=== PATIENT | male | born 1975 | race Caucasian/White ===

== ENCOUNTER → 2023-12-14 11:49 | Outpatient (CLI) | payer OTHER, SELFPAY ==
[2023-12-14 13:37] LABS: Add Manual Diff / Slide Review NO; Basophils Absolute Auto 100 /uL (0-100); Basophils Percent Auto 0.8 % (0-2); Eosinophils Absolute Auto 200 /uL (0-450); Eosinophils Percent Auto 2.8 % (2-4); Hematocrit 49.3 % (41-53); Hemoglobin 17.5 g/dL (13.5-17.5); Lymphocytes Absolute Auto 1400 /uL (1100-4500); Mean Corpuscular HGB Conc 35.6 % (30-36); Mean Corpuscular Volume 95.7 fL (80-100); Monocytes Absolute Auto 700 /uL (0-900); Monocytes Percent Auto 8.7 % (3-14); Neutrophils Absolute Auto 5400 /uL (1500-7000); Neutrophils Percent Auto 69.7 % (50-75); Platelet Count 188 X10^3/uL (150-400); Red Blood Cell Count 5.15 X10^6/uL (4.5-5.9); Red Cell Distribution Width 12.9 % (11.6-14.8); White Blood Cell Count 7.7 X10^3/uL (4.5-11.0)
[2023-12-14 13:39] LABS: Alanine Aminotransferase 92 IU/L (<50); Albumin 4.5 g/dL (3.5-5.0); Albumin Globulin Ratio 1.4 (1.0-2.8); Alkaline Phosphatase 81 U/L (38-126); Aspartate Aminotransferase 52 IU/L (17-59); BUN Creatinine Ratio 19.2 (6-22); Bilirubin Total 1.4 mg/dL (0.2-1.3); Blood Urea Nitrogen 20 mg/dL (9-20); Calcium 9.8 mg/dL (8.4-10.2); Carbon Dioxide 27 mmol/L (22-32); Chloride 104 mmol/L (98-107); Cholesterol 280 mg/dL (140-199); Estimated Glomerular Filt Rate > 60 mL/min (>60); Globulin 3.3 g/dL (1.7-4.1); Glucose 84 mg/dL (70-100); HDL Cholesterol 52 mg/dL (40-60); HEMOLYSIS < 15 (0-50); LDL Cholesterol Calculated 202 mg/dL (<100); Potassium 4.6 mmol/L (3.4-5.1); Sodium 139 mmol/L (137-145); Total Protein 7.8 g/dL (6.3-8.2); Triglycerides 131 mg/dL (35-150)
[2023-12-14 14:10] LABS: Prostate Specific Antigen 1.33 ng/mL (0.10-4.00)
== END ==
PROVIDERS: PCP Family Medicine; Referring Provider Family Medicine; Visit Provider Family Medicine
DX: Z00.00 Encounter for general adult medical examination without abnormal findings (principal); Z12.5 Encounter for screening for malignant neoplasm of prostate
CPT/HCPCS: 36415; 80053; 80061; 84153; 85025

== ENCOUNTER → 2024-01-05 08:35 | Outpatient (CLI) | payer OTHER, SELFPAY ==
--- NOTE | 2024-01-05 08:36 | DI.RAD.S_ITS ---
PROCEDURE: FL UPPER GI SERIES INDICATIONS: Gastro-esophageal reflux disease without esophagitis COMPARISON: None. FINDINGS: KUB: Preprocedural sql report analyst film demonstrates a normal bowel gas pattern. No suspicious abdominal calcifications. Visualized solid organ contours appear normal. Bony structures appear unremarkable. Esophagus: Esophageal mucosa is normal on air-contrast views. On single-contrast views, there is normal esophageal peristalsis. No strictures, extrinsic mass effects, or diverticula. No hiatal hernia . [id number] gastroesophageal reflux is seen with contrast reflux to mid esophageal lumen. There is normal transit of a calibrated barium tablet through the esophagus. Stomach: The stomach is normally distensible, with normal rugal fold thickness. No mucosal masses or ulcers. Pylorus and duodenal bulb appear normal in morphology. Duodenal folds are normal in thickness as well. IMPRESSION: [id number] gastroesophageal reflux with contrast reflux to mid esophageal lumen. No ulceration or intraluminal filling defect is seen in esophagus or stomach. Dictated by: David De La Cruz M.D. on 01/05/2024 at 18:00 Approved by: David De La Cruz M.D. on 01/05/2024 at 18:00
== END ==
LOC: RAD 08:36
PROVIDERS: PCP Family Medicine; Referring Provider Family Medicine; Visit Provider Family Medicine
DX: K21.9 Gastro-esophageal reflux disease without esophagitis (principal)
CPT/HCPCS: 74240

== ENCOUNTER 2024-02-29 11:27 | Emergency (ER) | payer OTHER, SELFPAY ==
[2024-02-29 11:29] VITALS: BP 127/94; PULSE 66; RESP 24; TEMP 36.6; O2SAT 98; BMI 33.9
--- NOTE | 2024-02-29 11:34 | DI.RAD.S_ITS ---
PROCEDURE: XR SHOULDER RT MIN 2V INDICATIONS: fall/shoulder pain TECHNIQUE: 2 views of the shoulder were acquired. COMPARISON: None. FINDINGS: Bones: No fractures or dislocations. No suspicious bony lesions. Visualized ribs appear intact. Soft tissues: No suspicious soft tissue calcifications. IMPRESSION: No acute bony abnormality. Dictated by: Zhen Valadez M.D. on 02/29/2024 at 13:02 Approved by: Zhen Valadez M.D. on 02/29/2024 at 13:03
[2024-02-29 11:35] VITALS: PULSE 71; O2SAT 97
--- NOTE | 2024-02-29 11:35 | DI.RAD.S_ITS ---
PROCEDURE: XR RIBS RT MIN 3V W CXR 1V INDICATIONS: fall/pain TECHNIQUE: 2 views of the ribs were acquired, along with a single view chest. COMPARISON: None. FINDINGS: Surgical changes and devices: None. Bones and chest wall: No fractures or dislocations. No suspicious bony lesions. Overlying soft tissues appear unremarkable. Lungs and pleura: No pleural effusions or pneumothorax. Lungs appear clear. Mediastinum: Mediastinal contours appear normal. Heart size is normal. IMPRESSION: No displaced rib fracture or pneumothorax. Dictated by: Zhen Valadez M.D. on 02/29/2024 at 13:03 Approved by: Zhen Valadez M.D. on 02/29/2024 at 13:06
[2024-02-29 12:00] VITALS: PULSE 68; O2SAT 97
[2024-02-29 12:40] VITALS: BP 139/97; PULSE 62; RESP 12; O2SAT 99
--- NOTE | 2024-02-29 12:46 | DI.CT.S_ITS ---
PROCEDURE: CT TRAUMA CHEST ABDOMEN PELVIS INDICATIONS: fall TECHNIQUE: After the administration of intravenous contrast, 5 mm thick sections acquired from the lung apices to the symphysis. 2.5 mm thick coronal and sagittal reformats were acquired. Additional 7 mm thick coronal maximum intensity projection (MIP) reformats acquired through the lungs. Optional 10-minute delayed imaging may be performed from the kidneys to the bladder. For radiation dose reduction, the following was used: automated exposure control, adjustment of mA and/or kV according to patient size. COMPARISON: Outside Film, CT, CT ABDOMEN PELVIS WITHOUT CONTRAST, 07/03/2018, 9:19. FINDINGS: Image quality: Diagnostic. CHEST: Lower Neck: No enlarged lymph nodes. Thyroid: No thyroid nodules which require sonographic evaluation. Axillae: No enlarged lymph nodes. Chest Wall: No subcutaneous gas. Lungs and Pleura: No pulmonary contusions or lacerations. No acute airspace opacities. No pneumothorax or hemothorax. Mediastinum: No mediastinal hematomas. Heart size is normal. No pericardial effusion. Thoracic aorta and pulmonary arteries demonstrate normal size and enhancement. No mediastinal or hilar adenopathy. Esophagus is normal in caliber. No hiatal hernia. ABDOMEN: Liver: No lacerations. Significant steatosis. Gallbladder: No radiopaque gallstones or wall thickening. Biliary ducts: No biliary dilation. Pancreas: Homogenous enhancement. Spleen: Homogenous enhancement without laceration or hematoma. Adrenal Glands: Symmetric enhancement. Kidneys and Ureters: Symmetric enhancement. No hydronephrosis. No solid mass. No complex renal cystic lesion which requires follow up. Stomach and Bowel: Normal colonic caliber, without significant wall thickening. Appendix is normal. Peritoneum: No abnormal intraperitoneal fluid. No free air. Ventral Wall: No hernia. Abdominal Nodes: No retroperitoneal or mesenteric adenopathy by size criteria. Vessels: Aorta and inferior vena cava are normal in size. PELVIS: Pelvic Organs: Unremarkable. Bladder: Normal thickness. Pelvic Nodes: No enlarged lymph nodes. Miscellaneous: No inguinal hernias are seen. Bones: Superior endplate deformity at T10 with approximately 42% compression. No displaced rib fractures. IMPRESSION: Superior endplate deformity with approximately 42% compression at T10 suspicious for acute/subacute fracture. Recommend correlation point tenderness. It is new since 2019. Significant hepatic steatosis. Dictated by: Susan Valera M.D. on 02/29/2024 at 15:10 Approved by: Susan Valera M.D. on 02/29/2024 at 15:17
--- NOTE | 2024-02-29 12:50 | ED.FALL ---
HPI - Fall <Erin Umaña PA-C - Last Filed: 02/29/24 17:12> General Chief Complaint: Fall Stated Complaint: fell through the deck, shoulder injury Time Seen by Provider: 02/29/24 12:14 Source: patient Mode of arrival: Wheelchair History of Present Illness HPI Narrative: 48-year-old male with history of hyperlipidemia GERD who is not on blood thinners presents with concern for approximately 6 ft fall through a deck today. Patient states he was doing work on a deck and unfortunately stepped on a joist that was not well secured which fell through, he fell between 2 adjacent joists that were secured, and as he was falling his right arm got caught behind him he said it felt like a intense cramp initially as his arm was caught but ultimately freed up as he continued to fall he states he also hit his right side of his ribs and slightly in the front of his ribs and abdomen as he fell and ?banged into things on the way down?. He landed on dirt and states he did not hit his head or lose consciousness. He states that he has been having a lot of pain in his ribs, initially he had a lot of pain in his shoulder and he felt his arm was stuck behind him after falling but he was gradually able to pull it forward and get it back into a normal position. His shoulder pain is in the top and back as well as front of his shoulder in my rotator cuff. At this point his shoulder is not painful as long as he is keeping it totally still but it is painful if he tries to move it/his arm. He states most of his current discomfort is in his rib area on the right side and slightly in the front. He does state he has been breathing more shallowly because of the pain in his ribs and side. He feels that these symptoms are gradually improving some but still painful to take a deep breath. He has also been having crampy abdominal pain ever since the fall. He has noticed a little bit of slight discomfort in his upper back in the middle but it is not particularly bothersome. He denies hitting his head, nausea, vomiting, blood in his urine, neck pain, headache, vision change or other symptoms. He endorses a history of a possible umbilical hernia which has been gradually worsening and for which he has not had previous evaluation. This does not seemed different today since his fall. Related Data Previous Rx's Medication Instructions Recorded atorvastatin 20 mg tablet 20 mg PO DAILY #60 tabs 01/05/24 baclofen 10 mg tablet 10 mg PO TID muscle 02/29/24 tightness/spasms 10 days #30 tabs oxycodone-acetaminophen 10 mg-325 1 tab PO Q6H PRN pain 3 days #12 02/29/24 mg tablet (Percocet) tabs Allergies Allergy/AdvReac Type Severity Reaction Status Date / Time No Known Drug Allergies Allergy Unverified 12/14/23 11:11 Review of Systems <Erin Umaña PA-C - Last Filed: 02/29/24 17:12> Review of Systems Narrative: See HPI Patient History <Erin Umaña PA-C - Last Filed: 02/29/24 17:12> Medical History Hyperlipidemia Past history of chewing tobacco use Preventative health care GERD (gastroesophageal reflux disease) Social History Smoking Status: Never smoker Smoking Status: Never smoker alcohol intake frequency: holidays/special occasions only Substance Use Type: does not use Exam <Erin Umaña PA-C - Last Filed: 02/29/24 17:12> Narrative Exam Narrative: GENERAL: [48] year old patient appears stated age. Overweight patient, in mild distress. HEAD: Atraumatic. Normocephalic. EYES: Pupils equal round and reactive. Extraocular motions intact. No scleral icterus. No injection or drainage. ENT: Nose without bleeding, purulent drainage. Throat without erythema, tonsillar hypertrophy or exudate. Airway patent. NECK: Trachea midline. Non tender CARDIOVASCULAR: Regular rate and rhythm without murmurs, gallops, or rubs. RESPIRATORY: Lung sounds are slightly diminished in the base on the right. Breath sounds otherwise equal bilaterally. No wheezes, rales, or rhonchi. GASTROINTESTINAL: Abdomen soft, there is right upper quadrant tenderness, there are superficial abrasions/early bruising signs on the right upper abdomen at the costal margin. Non-tender, nondistended. EXTREMITIES: Right shoulder has significantly reduced range of motion 2nd to pain, tenderness of posterior shoulder and trapezius, passive range of motion is also very painful for the patient. Unable to perform scarf sign test or lift the arm/abduct above 15? without significant pain. No other edema or joint tenderness noted on exam. BACK/thorax: There is tenderness with palpation of the right anterior and axillary ribs at level T 8 through 10. No definite crepitus noted. C-spine is nontender without step-off or deformity, T-spine has some mild tenderness at T 6 through 12. No deformity noted. Nontender without deformity or crepitance. No flank tenderness. NEURO: AOx3. SKIN: No rash or erythema of visible areas Initial Vital Signs Initial Vital Signs: Vital Signs Temperature 97.8 F 02/29/24 11:29 Pulse Rate 66 02/29/24 11:29 Respiratory Rate 24 02/29/24 11:29 Blood Pressure 127/94 H 02/29/24 11:29 Pulse Oximetry 98 02/29/24 11:29 Oxygen Delivery Method Room Air 02/29/24 11:29 <Oliverio Ontiveros MD - Last Filed: 02/29/24 20:33> Initial Vital Signs Initial Vital Signs: Vital Signs Temperature 97.8 F 02/29/24 11:29 Pulse Rate 66 02/29/24 11:29 Respiratory Rate 24 02/29/24 11:29 Blood Pressure 127/94 H 02/29/24 11:29 Pulse Oximetry 98 02/29/24 11:29 Oxygen Delivery Method Room Air 02/29/24 11:29 Course <Erin Umaña PA-C - Last Filed: 02/29/24 17:12> Orders Ordered: ED Orders 02/29/24 11:34 XR shoulder RT min 2V Stat 02/29/24 11:35 XR ribs RT min 3V w CXR1V Stat 02/29/24 12:46 CT Trauma Chest Abdomen Pelvis Stat RT Consult Eval and Treat NOW 02/29/24 12:47 EKG-12 Lead Stat 02/29/24 13:02 Complete Blood Count AUTO DIFF Stat Comprehensive Metabolic Panel Stat Ictotest Urine Stat Lipase Stat PTT Partial Thromboplastin Sharif Stat Prothrombin Time INR Stat Urinalysis and Microscopic Stat Discontinued Medications Hydromorphone HCl (Hydromorphone 1 Mg Inj) 1 mg IV NOW ONE Stop: 02/29/24 12:47 Last Admin: 02/29/24 12:54 Dose: 1 mg Documented By: HARISH Hydromorphone HCl (Hydromorphone 1 Mg Inj) 0.5 mg IV NOW ONE Stop: 02/29/24 14:32 Last Admin: 02/29/24 14:36 Dose: 0.5 mg Documented By: HARISH Sodium Chloride (Normal Saline 0.9%) 1,000 mls @ 500 mls/hr IV BOLUS ONE Stop: 02/29/24 14:49 Last Infusion: 02/29/24 15:33 Dose: Infused Documented By: Admin: 02/29/24 12:54 Dose: 500 mls/hr Documented By: HARISH Ondansetron HCl (Ondansetron 4 Mg/2 Ml Inj) 4 mg IV NOW ONE Stop: 02/29/24 12:47 Last Admin: 02/29/24 12:53 Dose: 4 mg Documented By: HARISH Reevaluation(s) Reevaluation #1: On re-evaluation after obtaining CT results notable for 42% compression fracture at T10, patient does have some spine tenderness midline at approximately T10-T12 which was not notable on initial exam. Reports that he sustained compression injury and has seen his PCP for it 3 months ago but has been having persistent pain at or around T10, did not have previous imaging for this. Vital Signs Vital signs: Vital Signs - 8 hr 02/29/24 12:40 02/29/24 14:37 02/29/24 16:04 Pulse Rate 62 59 L 64 Respiratory Rate 12 14 14 Blood Pressure 139/97 H 125/83 121/75 Pulse Oximetry 99 99 96 Oxygen Delivery Method Room Air Room Air <Oliverio Ontiveros MD - Last Filed: 02/29/24 20:33> Orders Ordered: ED Orders 02/29/24 11:34 XR shoulder RT min 2V Stat 02/29/24 11:35 XR ribs RT min 3V w CXR1V Stat 02/29/24 12:46 CT Trauma Chest Abdomen Pelvis Stat RT Consult Eval and Treat NOW 02/29/24 12:47 EKG-12 Lead Stat 02/29/24 13:02 Complete Blood Count AUTO DIFF Stat Comprehensive Metabolic Panel Stat Ictotest Urine Stat Lipase Stat PTT Partial Thromboplastin Sharif Stat Prothrombin Time INR Stat Urinalysis and Microscopic Stat Discontinued Medications Hydromorphone HCl (Hydromorphone 1 Mg Inj) 1 mg IV NOW ONE Stop: 02/29/24 12:47 Last Admin: 02/29/24 12:54 Dose: 1 mg Documented By: HARISH Hydromorphone HCl (Hydromorphone 1 Mg Inj) 0.5 mg IV NOW ONE Stop: 02/29/24 14:32 Last Admin: 02/29/24 14:36 Dose: 0.5 mg Documented By: HARISH Sodium Chloride (Normal Saline 0.9%) 1,000 mls @ 500 mls/hr IV BOLUS ONE Stop: 02/29/24 14:49 Last Infusion: 02/29/24 15:33 Dose: Infused Documented By: Admin: 02/29/24 12:54 Dose: 500 mls/hr Documented By: HARISH Ondansetron HCl (Ondansetron 4 Mg/2 Ml Inj) 4 mg IV NOW ONE Stop: 02/29/24 12:47 Last Admin: 02/29/24 12:53 Dose: 4 mg Documented By: HARISH Vital Signs Vital signs: Vital Signs - 8 hr 02/29/24 12:40 02/29/24 14:37 02/29/24 16:04 Pulse Rate 62 59 L 64 Respiratory Rate 12 14 14 Blood Pressure 139/97 H 125/83 121/75 Pulse Oximetry 99 99 96 Oxygen Delivery Method Room Air Room Air MDM - Fall <Erin Umaña PA-C - Last Filed: 02/29/24 17:12> Differential Diagnosis Differential diagnosis: Likely dislocation of shoulder region and other (rib fractures, pulmonary contusion, intra-abdominal trauma, thoracic compression fracture) Medical Records Attestation: I reviewed the patient's medical records. Lab Data Attestation: I reviewed the patient's lab results. 02/29/24 13:02 02/29/24 13:02 Labs: Lab Results 02/29/24 Range/Units 13:02 WBC 9.9 (4.5-11.0) X10^3/uL RBC 5.09 (4.5-5.9) X10^6/uL Hgb 17.0 (13.5-17.5) g/dL Hct 48.0 (41-53) % MCV 94.4 (80-100) fL MCH 33.3 (26-34) PG MCHC 35.3 (30-36) % RDW 13.3 (11.6-14.8) % Plt Count 188 (150-400) X10^3/uL Neut % (Auto) 79.1 H (50-75) % Lymph % (Auto) 11.3 L (25-40) % [place] % (Auto) 7.5 (3-14) % Eos % (Auto) 1.4 L (2-4) % Baso % (Auto) 0.7 (0-2) % Neut # (Auto) 7800 H (2484-6679) /uL Lymph # (Auto) 1100 (2043-0280) /uL [place] # (Auto) 700 (0-900) /uL Eos # (Auto) 100 (0-450) /uL Baso # (Auto) 100 (0-100) /uL PT 11.8 (9.4-12.5) SECONDS INR 1.0 (0.9-1.3) APTT 31 (25.1-36.5) SECONDS Sodium 136 L (137-145) mmol/L Potassium 5.0 (3.4-5.1) mmol/L Chloride 102 (98-107) mmol/L Carbon Dioxide 26 (22-32) mmol/L BUN 20 (9-20) mg/dL Creatinine 0.95 (0.66-1.25) mg/dL Estimated GFR > 60 (>60) mL/min BUN/Creatinine Ratio 21.1 (6-22) Glucose 94 (70-100) mg/dL Calcium 9.8 (8.4-10.2) mg/dL Total Bilirubin 1.4 H (0.2-1.3) mg/dL AST 93 H (17-59) IU/L ALT 143 H (<50) IU/L Alkaline Phosphatase 72 (38-126) U/L Total Protein 8.1 (6.3-8.2) g/dL Albumin 4.8 (3.5-5.0) g/dL Globulin 3.3 (1.7-4.1) g/dL Albumin/Globulin Ratio 1.5 (1.0-2.8) Lipase 102 (23-300) U/L Urine Color [place] Urine Appearance Clear Urine pH 7.0 (4.5-8.0) Ur Specific [place] 1.020 (1.000-1.035) Urine Protein 1+ H (Negative) Urine Glucose (UA) Negative (Negative) g/dL Urine Ketones 1+ H (NEGATIVE) Urine Occult Blood Negative (Negative) Urine Nitrate Negative (Negative) Urine Bilirubin 1+ H (NEGATIVE) Ur Bilirubin Confirm Negative (Negative) Urine Urobilinogen 2.0 H (0.2) E.U./dL Ur Leukocyte Esterase Negative (NEGATIVE) Urine RBC 0-1/hpf (0-5/HPF) Urine WBC 0-1/hpf (0-5/HPF) Ur Squamous Epith Cells 5-10 /hpf H (0-5/HPF) Urine Bacteria None seen (None) Urine Mucus 2+ H (Negative) Ur Culture Indicated? Cult not indicated Vol Urine Centrifuged 10ml (spun) Imaging Data Ribs XR: My Impression: Agree with Radiology interpretation Radiologist's Impression: [address] [address] XRay Report Signed Patient: Thanh Conklin MR#: [id number] : 1975 Acct:[id number] Age/Sex: 48 / M Date of Service: 02/29/24 Loc: ED Accession Number: [id number] Procedure: XR ribs RT min 3V w CXR1V Ordering Provider: Oliverio Ontiveros MD PROCEDURE: XR RIBS RT MIN 3V W CXR 1V INDICATIONS: fall/pain TECHNIQUE: 2 views of the ribs were acquired, along with a single view chest. COMPARISON: None. FINDINGS: Surgical changes and devices: None. Bones and chest wall: No fractures or dislocations. No suspicious bony lesions. Overlying soft tissues appear unremarkable. Lungs and pleura: No pleural effusions or pneumothorax. Lungs appear clear. Mediastinum: Mediastinal contours appear normal. Heart size is normal. IMPRESSION: No displaced rib fracture or pneumothorax. Dictated by: Zhen Valadez M.D. on 02/29/2024 at 13:03 Approved by: Zhen Valadez M.D. on 02/29/2024 at 13:06 Extremity x-ray #1: My Impression: Agree with Radiology interpretation Radiologist's Impression: [address] [address] XRay Report Signed Patient: Thanh Conklin MR#: [id number] : 1975 Acct:[id number] Age/Sex: 48 / M Date of Service: 02/29/24 Loc: ED Accession Number: [id number] Procedure: XR shoulder RT min 2V Ordering Provider: Oliverio Ontiveros MD PROCEDURE: XR SHOULDER RT MIN 2V INDICATIONS: fall/shoulder pain TECHNIQUE: 2 views of the shoulder were acquired. COMPARISON: None. FINDINGS: Bones: No fractures or dislocations. No suspicious bony lesions. Visualized ribs appear intact. Soft tissues: No suspicious soft tissue calcifications. IMPRESSION: No acute bony abnormality. Dictated by: Zhen Valadez M.D. on 02/29/2024 at 13:02 Approved by: Zhen Valadez M.D. on 02/29/2024 at 13:03 CT scan - abdomen/pelvis: My Impression: Agree with Radiology interpretation Radiologist's Impression: [place] [address] CT Scan Report Signed Patient: Thanh Conklin MR#: [id number] : 1975 Acct:[id number] Age/Sex: 48 / M Date of Service: 02/29/24 Loc: ED Accession Number: [id number] Procedure: CT Trauma Chest Abdomen Pelvis Ordering Provider: Erin Umaña PA-C PROCEDURE: CT TRAUMA CHEST ABDOMEN PELVIS INDICATIONS: fall TECHNIQUE: After the administration of intravenous contrast, 5 mm thick sections acquired from the lung apices to the symphysis. 2.5 mm thick coronal and sagittal reformats were acquired. Additional 7 mm thick coronal maximum intensity projection (MIP) reformats acquired through the lungs. Optional 10-minute delayed imaging may be performed from the kidneys to the bladder. For radiation dose reduction, the following was used: automated exposure control, adjustment of mA and/or kV according to patient size. COMPARISON: Outside Film, CT, CT ABDOMEN PELVIS WITHOUT CONTRAST, 07/03/2018, 9:19. FINDINGS: Image quality: Diagnostic. CHEST: Lower Neck: No enlarged lymph nodes. Thyroid: No thyroid nodules which require sonographic evaluation. Axillae: No enlarged lymph nodes. Chest Wall: No subcutaneous gas. Lungs and Pleura: No pulmonary contusions or lacerations. No acute airspace opacities. No pneumothorax or hemothorax. Mediastinum: No mediastinal hematomas. Heart size is normal. No pericardial effusion. Thoracic aorta and pulmonary arteries demonstrate normal size and enhancement. No mediastinal or hilar adenopathy. Esophagus is normal in caliber. No hiatal hernia. ABDOMEN: Liver: No lacerations. Significant steatosis. Gallbladder: No radiopaque gallstones or wall thickening. Biliary ducts: No biliary dilation. Pancreas: Homogenous enhancement. Spleen: Homogenous enhancement without laceration or hematoma. Adrenal Glands: Symmetric enhancement. Kidneys and Ureters: Symmetric enhancement. No hydronephrosis. No solid mass. No complex renal cystic lesion which requires follow up. Stomach and Bowel: Normal colonic caliber, without significant wall thickening. Appendix is normal. Peritoneum: No abnormal intraperitoneal fluid. No free air. Ventral Wall: No hernia. Abdominal Nodes: No retroperitoneal or mesenteric adenopathy by size criteria. Vessels: Aorta and inferior vena cava are normal in size. PELVIS: Pelvic Organs: Unremarkable. Bladder: Normal thickness. Pelvic Nodes: No enlarged lymph nodes. Miscellaneous: No inguinal hernias are seen. Bones: Superior endplate deformity at T10 with approximately 42% compression. No displaced rib fractures. IMPRESSION: Superior endplate deformity with approximately 42% compression at T10 suspicious for acute/subacute fracture. Recommend correlation point tenderness. It is new since 2019. Significant hepatic steatosis. Dictated by: Susan Valera M.D. on 02/29/2024 at 15:10 Approved by: Susan Valera M.D. on 02/29/2024 at 15:17 MDM Narrative Medical decision making narrative: This is a 48-year-old male with a history of hyperlipidemia, GERD presenting with pain with inspiration, right rib pain and abdominal pain as well as right shoulder pain after a fall from 6-8 feet of height from a deck to dirt today. X-rays of shoulder and right ribs were ordered initially from triage which did returned negative however patient had significant tenderness on exam and pain that required Dilaudid for improvement, also some tenderness of his spine and abdomen right upper quadrant at the site of multiple abrasions from the fall today, and CT was ordered for further evaluation. No evidence of rib fractures or pneumothorax, This revealed chronic hepatic steatosis as well as a T10 compression injury with 42% loss of height, after further discussion with the patient suspect that this may be from 3 months prior when patient injured himself with a compression type injury but did not have imaging. Radiology felt that this injury may be subacute. Certainly this could have been exacerbated by today's fall/injury. Although I think less likely was due to the injury fall today. Patient's exam is also consistent with a rotator cuff injury significant reduced range of motion of the right shoulder and pain. Based on his description of the injury pattern when he fell through the deck am suspicious that he did possibly tear/sprain some sits muscles. He had mild elevation of his liver enzymes and elevated bilirubin to 1.4 but really elevation is consistent from his last labs in November. Discussed with him and suspect this is likely due to his hepatic steatosis. He is advised to follow up closely with his PCP for this. Prescription for 3 day course of Percocet to be used as needed for pain as well as muscle relaxer. Patient advised to follow up closely with PCP, see orthopedics for further evaluation of shoulder, discuss his likely chronic spine compression injury with his PCP and see ortho spine after this. Return precautions provided, follow-up plan discussed, all questions answered. <Oliverio Ontiveros MD - Last Filed: 02/29/24 20:33> Lab Data Labs: Lab Results 02/29/24 Range/Units 13:02 WBC 9.9 (4.5-11.0) X10^3/uL RBC 5.09 (4.5-5.9) X10^6/uL Hgb 17.0 (13.5-17.5) g/dL Hct 48.0 (41-53) % MCV 94.4 (80-100) fL MCH 33.3 (26-34) PG MCHC 35.3 (30-36) % RDW 13.3 (11.6-14.8) % Plt Count 188 (150-400) X10^3/uL Neut % (Auto) 79.1 H (50-75) % Lymph % (Auto) 11.3 L (25-40) % [place] % (Auto) 7.5 (3-14) % Eos % (Auto) 1.4 L (2-4) % Baso % (Auto) 0.7 (0-2) % Neut # (Auto) 7800 H (1759-3034) /uL Lymph # (Auto) 1100 (0767-5002) /uL [place] # (Auto) 700 (0-900) /uL Eos # (Auto) 100 (0-450) /uL Baso # (Auto) 100 (0-100) /uL PT 11.8 (9.4-12.5) SECONDS INR 1.0 (0.9-1.3) APTT 31 (25.1-36.5) SECONDS Sodium 136 L (137-145) mmol/L Potassium 5.0 (3.4-5.1) mmol/L Chloride 102 (98-107) mmol/L Carbon Dioxide 26 (22-32) mmol/L BUN 20 (9-20) mg/dL Creatinine 0.95 (0.66-1.25) mg/dL Estimated GFR > 60 (>60) mL/min BUN/Creatinine Ratio 21.1 (6-22) Glucose 94 (70-100) mg/dL Calcium 9.8 (8.4-10.2) mg/dL Total Bilirubin 1.4 H (0.2-1.3) mg/dL AST 93 H (17-59) IU/L ALT 143 H (<50) IU/L Alkaline Phosphatase 72 (38-126) U/L Total Protein 8.1 (6.3-8.2) g/dL Albumin 4.8 (3.5-5.0) g/dL Globulin 3.3 (1.7-4.1) g/dL Albumin/Globulin Ratio 1.5 (1.0-2.8) Lipase 102 (23-300) U/L Urine Color [place] Urine Appearance Clear Urine pH 7.0 (4.5-8.0) Ur Specific [place] 1.020 (1.000-1.035) Urine Protein 1+ H (Negative) Urine Glucose (UA) Negative (Negative) g/dL Urine Ketones 1+ H (NEGATIVE) Urine Occult Blood Negative (Negative) Urine Nitrate Negative (Negative) Urine Bilirubin 1+ H (NEGATIVE) Ur Bilirubin Confirm Negative (Negative) Urine Urobilinogen 2.0 H (0.2) E.U./dL Ur Leukocyte Esterase Negative (NEGATIVE) Urine RBC 0-1/hpf (0-5/HPF) Urine WBC 0-1/hpf (0-5/HPF) Ur Squamous Epith Cells 5-10 /hpf H (0-5/HPF) Urine Bacteria None seen (None) Urine Mucus 2+ H (Negative) Ur Culture Indicated? Cult not indicated Vol Urine Centrifuged 10ml (spun) Discharge Plan Departure Patient Disposition: Home Clinical Impression: Hepatic steatosis, Fall from height of greater than 3 feet Rotator cuff (capsule) sprain Qualifiers: Encounter type: initial encounter Laterality: right Qualified Code(s): S43.421A - Sprain of right rotator cuff capsule, initial encounter Intercostal muscle strain Qualifiers: Encounter type: initial encounter Qualified Code(s): S29.011A - Strain of muscle and tendon of front wall of thorax, initial encounter Compression fracture of T10 vertebra Qualifiers: Encounter type: initial encounter Qualified Code(s): S22.070A - Wedge compression fracture of T9-T10 vertebra, initial encounter for closed fracture Activity Restrictions/Additional Instructions: *You have been diagnosed with [rotator cuff injury/shoulder strain, T10 vertebral compression fracture (possibly from 3 months ago), intercostal muscle strain, hepatic steatosis] *What to do: *Please continue to take your regular medications as directed. [2 ] New medication prescriptions sent to your pharmacy: [Baclofen, Percocet] [ ] New medication written as a paper prescription [ ] No new medications given *Please follow up with your primary care provider in 2-3 days, call for an appointment. Let them know you were seen in the Emergency Department and that we ask that you be seen in follow up. We will electronically transmit a record of today's note if your PCP is in our system. You had a fall today and injured her shoulder and right-side ribs. Your shoulder x-ray does not show any abnormality of the bones but based on your exam I am suspicious you have a rotator cuff injury and has likely torn some of the muscles that support your shoulder movement possibly damage the joint itself. We placed you in a sling today and I recommend close follow up with Orthopedics for this. You also sustained some rib/upper abdominal trauma when you fell, but thankfully do not have any rib fractures seen today or other abnormalities on CT scan of your chest abdomen and pelvis except that they did note you have hepatic steatosis. Your labs also are consistent with this and this could potentially be the source of your reported chronic abdominal discomfort. I recommend following up closely with your PCP regarding your hepatic steatosis and abdominal symptoms. Notably on CT they also found a compression fracture with a 42% height loss of your vertebra of the T10 (thoracic 10th vertebrae). After discussion regarding your history I am fairly suspicious that this injury actually probably occurred 3 months ago when you fell and landed very hard on your butt and compressed her spine as you have been having some chronic pain at this site since then. Can not rule out that this happened today during your fall except that Radiology felt it may be subacute; certainly even if not a new injury it was likely exacerbated during your fall today. I would encourage you to talk to an orthopedic biomedical equipment specialist but you can talk to your primary care provider about next steps here. I strongly encourage you to use ice for the next 24-48 hours on areas of pain including her shoulder and or back. I did prescribe some stronger pain medicine but recommend you start with Tylenol and ibuprofen and move onto the stronger medicine if needed. Keep in mind that strong medicine does have Tylenol in it and you should not take more than the maximum recommended dose of Tylenol per day all told. I also prescribed a muscle relaxer for you be cautious about operating any heavy equipment/driving (not recommended) when taking this and you should not drink alcohol at the same time is taking it. Follow up closely with your primary care provider, if you have new or worsening symptoms please seek re-evaluation. *If you do not have a primary care provider please contact the [facility] Resource line at [phone]. They will ask some questions about your medical history and help get you set up with a doctor in the community. *Return to Emergency Department if you should have any new, worsening or concerning symptoms, such as [fever greater than 101 F, shaking chills, worsening pain, persistent vomiting or other bothersome symptoms] This note was prepared using dictation and may have unintentional errors in spelling or grammar. Prescriptions: New baclofen 10 mg tablet 10 mg PO TID 10 Days Qty: 30 0RF oxycodone-acetaminophen [Percocet] 10-325 mg tablet 1 tab PO Q6H PRN (Reason: pain) 3 Days Qty: 12 0RF No Action atorvastatin 20 mg tablet 20 mg PO DAILY Qty: 60 4RF Rx Instructions: Take 10 mg.(Half a tablet) for 5 days, then take full tablet or 20 mg. daily Referrals: Jay Bolton DO [Primary Care Provider] - Aaron Nolan MD [Physician] - (rotator cuff injury s/p trauma/fall) Stand Alone Forms: Patient Portal/API ED Sign-out <Oliverio Ontiveros MD - Last Filed: 02/29/24 20:33> Sign Out Provider Sign Out Attestation: I was immediately available in the department for consultation. This documentation has been reviewed. Supervised by Oliverio Ontiveros MD
[2024-02-29] MEDS: ONDANSETRON 4 MG/2 ML INJ IV (12:53)
[2024-02-29] MEDS: HYDROMORPHONE 1 MG INJ IV (12:54)
[2024-02-29] MEDS: SODIUM CHLORIDE 0.9% 1,000 ML 500 ML IV (12:54)
[2024-02-29 13:16] LABS: Add Manual Diff / Slide Review NO; Basophils Absolute Auto 100 /uL (0-100); Basophils Percent Auto 0.7 % (0-2); Eosinophils Absolute Auto 100 /uL (0-450); Eosinophils Percent Auto 1.4 % (2-4); Lymphocytes Absolute Auto 1100 /uL (1100-4500); Lymphocytes Percent Auto 11.3 % (25-40); Mean Corpuscular HGB Conc 35.3 % (30-36); Mean Corpuscular Hemoglobin 33.3 PG (26-34); Mean Corpuscular Volume 94.4 fL (80-100); Monocytes Absolute Auto 700 /uL (0-900); Monocytes Percent Auto 7.5 % (3-14); Neutrophils Absolute Auto 7800 /uL (1500-7000); Neutrophils Percent Auto 79.1 % (50-75); Platelet Count 188 X10^3/uL (150-400); Red Blood Cell Count 5.09 X10^6/uL (4.5-5.9); Red Cell Distribution Width 13.3 % (11.6-14.8); White Blood Cell Count 9.9 X10^3/uL (4.5-11.0)
[2024-02-29 13:26] LABS: Prothrombin Time 11.8 SECONDS (9.4-12.5)
[2024-02-29 13:29] LABS: PTT Partial Thromboplastin Tim 31 SECONDS (25.1-36.5)
[2024-02-29 13:32] LABS: Lipase 102 U/L (23-300)
[2024-02-29 13:33] LABS: Alanine Aminotransferase 143 IU/L (<50); Albumin 4.8 g/dL (3.5-5.0); Albumin Globulin Ratio 1.5 (1.0-2.8); Alkaline Phosphatase 72 U/L (38-126); Aspartate Aminotransferase 93 IU/L (17-59); BUN Creatinine Ratio 21.1 (6-22); Bilirubin Total 1.4 mg/dL (0.2-1.3); Blood Urea Nitrogen 20 mg/dL (9-20); Calcium 9.8 mg/dL (8.4-10.2); Carbon Dioxide 26 mmol/L (22-32); Chloride 102 mmol/L (98-107); Estimated Glomerular Filt Rate > 60 mL/min (>60); Globulin 3.3 g/dL (1.7-4.1); Glucose 94 mg/dL (70-100); HEMOLYSIS 20 (0-50); Sodium 136 mmol/L (137-145); Total Protein 8.1 g/dL (6.3-8.2)
[2024-02-29 14:22] LABS: Appearance Urine UA CLEAR; Bilirubin Urine UA 1+ (NEGATIVE); Color Urine UA ORANGE; Glucose Urine UA NEGATIVE (Negative); Ketones Urine UA 1+ (NEGATIVE); Leukocyte Esterase Urine UA NEGATIVE (NEGATIVE); Nitrite Urine UA NEGATIVE (Negative); Occult Blood Urine UA NEGATIVE (Negative); Protein Urine UA 1+ (Negative)
[2024-02-29] MEDS: HYDROMORPHONE 1 MG INJ 0.5 MG IV (14:36)
[2024-02-29 14:37] VITALS: BP 125/83; PULSE 59; RESP 14; O2SAT 99
[2024-02-29 14:39] LABS: Bacteria Urine None Seen; RBC Urine 0-1/HPF (0-5/HPF); Squamous Epithelial Cell Urine 5-10 /HPF (0-5/HPF); Urine Volume 10mL (spun); WBC Urine 0-1/HPF (0-5/HPF)
[2024-02-29 14:40] LABS: Culture Indicated Urine Cult Not Indicated; Mucus Urine 2+ (Negative)
[2024-02-29 14:42] LABS: Ictotest Urine Negative (Negative)
[2024-02-29 16:04] VITALS: BP 121/75; PULSE 64; RESP 14; O2SAT 96
== END 2024-02-29 16:05 | disposition home or self-care (01) ==
PROVIDERS: Emergency Provider Student in an Organized Health Care Education/Training Program; PCP Family Medicine
DX: S43.421A Sprain of right rotator cuff capsule, initial encounter (principal); S29.011A Strain of muscle and tendon of front wall of thorax, initial encounter; S22.070A Wedge compression fracture of T9-T10 vertebra, initial encounter for closed fracture; R07.81 Pleurodynia; K76.0 Fatty (change of) liver, not elsewhere classified; W17.89XA Other fall from one level to another, initial encounter
CPT/HCPCS: 36415; 71101; 71275; 73030; 74177; 80053; 81001; 83690; 85025; 85610; 85730; 96361; 96374; 96375; 96376; 99284; J1170; J2405; Q9967

== ENCOUNTER → 2024-04-10 08:09 | Outpatient (CLI) | payer OTHER, SELFPAY ==
--- NOTE | 2024-04-10 | DI.MRI.S_ITS ---
PROCEDURE: MR SHOULDER RT WO CON INDICATIONS: RIGHT SHOULDER PAIN TECHNIQUE: Noncontrast oblique coronal T2 fast spin echo with fat saturation, oblique sagittal T1 spin echo and T2 fast spin echo with fat saturation, axial T1 spin echo and T2 fast spin echo with fat saturation through the shoulder. COMPARISON: [facility], CR, XR SHOULDER RT MIN 2V, 02/29/2024, 11:40. FINDINGS: Image quality: Excellent. Rotator cuff: Mild tendinosis of supraspinatus and infraspinatus, without tear. The teres minor is unremarkable. Low-grade interstitial tear of the subscapularis. Mild muscle edema of the infraspinatus, nonspecific likely representing mild muscle strain. No fatty atrophy. Bones and bursae: No significant degenerative changes acromioclavicular joint. Type 1 acromion. No os acromiale. Trace subacromial/subdeltoid bursitis. Mildly impacted fracture of the posterior humeral head, likely representing Hill-Sachs fracture, measuring 1.4 x 0.4 cm (length by depth). There is associated moderate marrow edema in the humeral head, extending to the humeral neck. No focal chondral defect of the glenohumeral articulation. Capsule and soft tissues: Circumferential labral tear and degeneration. A cluster of small paralabral cyst about the posterior labrum, measuring 1.4 cm overall. Mild tenosynovitis of the extra-articular biceps tendon. Low-grade interstitial tear of the extra-articular biceps tendon at the level of the proximal humeral diaphysis. Moderate tendinosis of the intra-articular biceps tendon. Small glenohumeral effusion. Mild subcoracoid bursitis. IMPRESSION: 1. Acute Hill-Sachs fracture, suggestive of recent anterior shoulder dislocation 2. Low-grade tear of the subscapularis. 3. Mild muscle edema of the infraspinatus, nonspecific and may represent mild muscle strain. 4. Circumferential labral tear with 1.4 cm paralabral cyst. 5. Mild tenosynovitis of the extra-articular biceps tendon with low-grade tear. Moderate tendinosis of the intra-articular biceps tendon. Dictated by: Hazel Ayala M.D. on 04/10/2024 at 14:21 Approved by: Hazel Ayala M.D. on 04/10/2024 at 14:30
== END ==
LOC: MRI 08:10
PROVIDERS: PCP Family Medicine; Referring Provider Orthopaedic Surgery; Visit Provider Orthopaedic Surgery
DX: S42.291A Other displaced fracture of upper end of right humerus, initial encounter for closed fracture (principal); S46.011A Strain of muscle(s) and tendon(s) of the rotator cuff of right shoulder, initial encounter; S43.431A Superior glenoid labrum lesion of right shoulder, initial encounter; M65.811 Other synovitis and tenosynovitis, right shoulder; M25.511 Pain in right shoulder
CPT/HCPCS: 73221

== ENCOUNTER 2024-07-30 08:11 | Day surgery (SDC) | payer OTHER, SELFPAY ==
--- NOTE | 2024-07-30 | PATH_ITS ---
[facility] Accession Number: [id number] No. of containers..02 Tissue . 01 Material submitted: . PART A: colon - TRANSVERSE POLYP PART B: colon - DESCENDING POLYP . 01 Diagnosis: A. TRANSVERSE COLON: Tubular adenoma. . B. DESCENDING COLON: Tubular adenoma. MRV 08/01/2024 1415 Local . 01 Electronically signed: . Ifeoma Soto DO, Pathologist NPI- [id number] . 01 Gross description: . A. Received in formalin with two patient identifiers and transverse colon polyp, are two diaz soft tissue fragments 0.3 to 0.4 cm in greatest dimension. Submitted in cassette A1. B. Received in formalin with two patient identifiers and descending colon polyp, are two diaz soft tissue fragments 0.6 to 0.7 cm in greatest dimension. Submitted in cassette B1. ([id number]) /JADEN 07/31/2024 0908 Local . 01 Pathologist provided ICD-10: Z12.11 . 01 CPT . 455110, [id number] Specimen Comment: A courtesy copy of this report has been sent to [facility] Pathology Performed at: [address] [facility] [id number] MD Brennon Alarcon MD Phone: [phone]
[2024-07-30 08:32] VITALS: BP 153/96; PULSE 72; RESP 16; TEMP 36.5; O2SAT 94
[2024-07-30] MEDS: SODIUM CHLORIDE 0.9% 1,000 ML 84 ML IV (08:38)
--- NOTE | 2024-07-30 09:40 | PM.HP.IH.1 ---
History of Present Illness History of Present Illness Date Patient Seen: 07/30/24 Time Patient Seen: 09:40 Chief complaint: Screening Colonoscopy Narrative: 48-year-old white male, no family history of colon cancer Crohn's disease presents for initial colon cancer screening. COUNT INCLUDES THE [facility] Medical History (Updated 07/30/24 @ 09:41 by Husam Pressley MD) Colon cancer screening (07/30/24) Hyperlipidemia Past history of chewing tobacco use Preventative health care GERD (gastroesophageal reflux disease) Social History Smoking Status: Never smoker alcohol intake: current Meds Home Medications and Allergies Home Medications Medication Instructions Recorded Confirmed Type atorvastatin 20 mg tablet 20 mg PO DAILY #60 tabs 01/05/24 07/30/24 Rx Allergies Allergy/AdvReac Type Severity Reaction Status Date / Time No Known Drug Allergies Allergy Verified 07/30/24 08:28 Review of Systems Review of Systems ROS: Yes All systems reviewed with the patient and are negative except as otherwise documented Exam Vital Signs (past 8 hours): - 07/30/24 08:32 Temperature 97.7 F Pulse Rate 72 Respiratory Rate 16 Blood Pressure 153/96 H Pulse Oximetry 94 Oxygen Delivery Method Room Air Oxygen Delivery Method Room Air Narrative Exam Narrative: Gen: NAD, sitting comfortably in bed, appears well HEENT: Sclera are anicteric, head is normocephalic and atraumatic, trachea is midline. CV: RRR, no JVD Resp: clear to auscultation bilaterally, equal chest wall movement bilaterally Abd: soft, nontender, normoactive bowel sounds Ext: no edema, full range of motion Neuro: Cranial nerves II-XII grossly intact, no focal deficits Skin: No erythema or ecchymosis Assessment & Plan Assessment and plan (1) Colon cancer screening: Status: Acute Assessment & Plan narrative: Patient presents for colonoscopy Risks, benefits, alternatives to colonoscopy explained, including but not limited to bowel perforation or other serious complication requiring surgery at less than 1 in 5000 colonoscopies, abdominal pain, cramping or bleeding and less than 1% of colonoscopies, and the chances that we find a diagnosis that would require further intervention of about 2%. Patient agrees to proceed. Time-Based Coding :: [TOTAL MINUTES] spent with patient and on the chart (including review of chart, obtaining history, exam, reviewing outside data, placing orders, documenting exam and treatment plan, and counseling patient) on [DATE]. [employer] In[employer] Document charge(s): No
--- NOTE | 2024-07-30 10:01 | PM.OP.COLON ---
Operative Date/Time/Diagnoses Date of procedure: 07/30/24 Time of procedure: 10:01 Pre-op diagnosis: Colon screening Post-op diagnosis: other (Polyps x 2) Procedure & Clinicians Study performed: Colonoscopy with cold snare polypectomy x2 Same procedure as scheduled: Yes Indications: Colon screening Surgeon: Husam Pressley Procedure Notes SCOAP/Timeout: Performed Procedure in detail: Time-out was performed. Mac was induced. Patient was placed in left lateral decubitus position. The perineum was inspected without any gross abnormality. Lubricated pediatric colonoscope was inserted and advanced to the cecum. The terminal ileum was intubated. The colonoscope was withdrawn slowly inspecting the circumference of the colon. A 10 mm polyp was noted in the transverse colon removed completely with cold snare polypectomy and retrieved. An 8 mm polyp was noted in the descending colon, removed completely with cold snare and retrieved. Very small polyps may have been missed, prep quality was adequate. Retroflexed view of the rectum showed small, non prolapsed nonbleeding internal hemorrhoids. The scope was withdrawn the patient was taken to PACU in good condition. Scope withdrawal time: 11 Sedation minutes: 14 Findings: polyp(s) Specimen(s): other (1. Transverse colon polyp2. Descending colon polyp) Complications: none Post-procedure Recommendations: Colonoscopy in 3 years (Based on 2 adenomatous polyps, 1 greater than 10 mm in size, your next colonoscopy should be in 3-5 years) Follow up: as needed Disposition: PACU
[2024-07-30 10:02] VITALS: BP 112/81; PULSE 69; RESP 12; TEMP 36.3; O2SAT 96
[2024-07-30 10:07] VITALS: BP 136/92; PULSE 67; RESP 15; O2SAT 98
[2024-07-30 10:12] VITALS: BP 114/81; PULSE 62; RESP 13; TEMP 36.7; O2SAT 96
[2024-07-30 10:16] VITALS: BP 123/90; PULSE 67; RESP 13; O2SAT 96
== END 2024-07-30 10:26 | disposition home or self-care (01) ==
PROVIDERS: PCP Family Medicine; Referring Provider Surgery; Visit Provider Surgery
PROC: 0DJD8ZZ Inspection of Lower Intestinal Tract, Via Natural or Artificial Opening Endoscopic (ICD-10-PCS; CPT 45378; principal; 2024-07-30 09:15)
DX: Z12.11 Encounter for screening for malignant neoplasm of colon (principal); K64.8 Other hemorrhoids
CPT/HCPCS: 45385; J2704